=== PATIENT | male | born 1980 | race American Indian/Alaskan Native ===

== ENCOUNTER 2017-10-06 10:40 | Emergency (ER) | payer OTHER, MEDICAID ==
--- NOTE | 2017-10-06 12:16 | RAD ---
PROCEDURE: Right Wrist Radiographs. HISTORY: injury COMPARISON: None. FINDINGS: BONES: No definite fracture identified. 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 . JOINTS: Normal. No dislocation. SOFT TISSUES: There is bulging of the pronator fat pad suggesting possible occult fracture. Further radiographic evaluation is suggested. OTHER FINDINGS: None. IMPRESSION: Possible occult fracture. Pronator fat pad sign noted. No definite fracture identified. Lunotriquetral incidentally noted. .
--- NOTE | 2017-10-06 12:17 | RAD ---
PROCEDURE: Right Hand Radiographs. HISTORY: injury COMPARISON: None. FINDINGS: BONES: No fracture. Incidentally noted is a lunotriquetral coalition, normal developmental variant. JOINTS: Normal. No osteoarthritic changes. SOFT TISSUES: Normal. OTHER FINDINGS: None. IMPRESSION: No acute fracture
--- NOTE | 2017-10-06 12:37 | C.PDOC ---
History Of Present Illness 37 y/o male [id number] presents to the ED for evaluation of right hand and wrist pain since yesterday. Patient reports while at work yesterday he dropped a heavy object on the right hand. Now c/o pain and swelling to the right hand. No other injuries. Denies any numbness or paresthesias. Time Seen by Provider: 10/06/17 11:21 Chief Complaint (Nursing): Upper Extremity Problem/Injury History Per: Patient History/Exam Limitations: no limitations Onset/Duration Of Symptoms: Days Current Symptoms Are (Timing): Still Present Past Medical History Reviewed: Historical Data, Nursing Documentation, Vital Signs Vital Signs: Last Vital Signs Temp 98 F 10/06/17 10:51 Pulse 75 10/06/17 10:51 Resp 16 10/06/17 10:51 BP 128/76 10/06/17 10:51 Pulse Ox 98 10/06/17 12:37 - Medical History PMH: No Chronic Diseases Other Surgeries: Cardiac surgery s/p trauma Family History: States: No Known Family Hx - Social History Hx Tobacco Use: Yes Hx Alcohol Use: No Hx Substance Use: No - Immunization History Hx Tetanus Toxoid Vaccination: Yes Hx Influenza Vaccination: Yes Hx Pneumococcal Vaccination: No Review Of Systems Except As Marked, All Systems Reviewed And Found Negative. Musculoskeletal: Positive for: Hand Pain (right hand + wrist) Neurological: Negative for: Weakness, Numbness Physical Exam - Physical Exam Appears: Non-toxic, No Acute Distress Skin: Normal Color, Warm, Dry Head: Atraumatic, Normacephalic Eye(s): bilateral: Normal Inspection Neck: Normal ROM Extremity: Normal ROM (of all digits), Tenderness (and swelling to right dorsal wrist and hand; neurovascularly intact), Capillary Refill (< 2 sec), No Deformity Pulses: Left Radial: Normal, Right Radial: Normal Neurological/Psych: Oriented x3, Normal Speech, Normal Motor, Normal Sensation, Other (No focal deficits) ED Course And Treatment O2 Sat by Pulse Oximetry: 98 (RA) Pulse Ox Interpretation: Normal Medical Decision Making Medical Decision Making: Clinical Impression: Hand/wrist pain and swelling Initial Plan: --X-ray right wrist --X-ray right hand --Motrin PO X-ray demonstrates possible occult fracture, no obvious fracture seen. Discussed w/ radiologist, Dr. Sagastume. Recommends orthopedic follow up with repeat imaging in 1 week. Impression: Wrist fracture Findings d/w patient. Advised follow up with ortho this week, referral for Dr. Shah provided. Volar splint applied by neurodiagnostic technician. Patient stable for d/c home. Disposition Counseled Patient/Family Regarding: Studies Performed, Diagnosis, Need For Followup, Rx Given - Disposition Referrals: Shantel Shah MD [Staff Provider] - Disposition: HOME/ ROUTINE Disposition Time: 12:35 Condition: STABLE Additional Instructions: follow up with orthopaedic in 2 days you need a repeat xray in one week ice, elevate, motrin for pain call to make an appointment take medications as prescribed return to ER if symptoms worsens or progress Instructions: Wrist Fracture (DC) Forms: General Discharge Instructions, [facility] (Iranian), Work Excuse - Clinical Impression Clinical Impression: Fracture of bone - Scribe Statement The provider has reviewed the documentation as recorded by the Scribe (Emerald Reddy) Provider Attestation: All medical record entries made by the Scribe were at my direction and personally dictated by me. I have reviewed the chart and agree that the record accurately reflects my personal performance of the history, physical exam, medical decision making, and the department course for this patient. I have also personally directed, reviewed, and agree with the discharge instructions and disposition.
[2017-10-06 13:01] VITALS: BP 135/80; PULSE 60; RESP 18; TEMP 98.1; O2SAT 97
== END 2017-10-06 13:01 | disposition home or self-care (01) ==
LOC: C.ER 10:40
DX: S62.101A Fracture of unspecified carpal bone, right wrist, initial encounter for closed fracture (principal); W22.8XXA Striking against or struck by other objects, initial encounter; Y92.89 Other specified places as the place of occurrence of the external cause; Y99.0 Civilian activity done for income or pay

== ENCOUNTER 2017-10-08 08:18 | Emergency (ER) | payer OTHER, MEDICAID ==
[2017-10-08 08:25] VITALS: BMI 36.1
[2017-10-08 08:30] VITALS: BP 130/74; PULSE 61; RESP 18; TEMP 98.8; O2SAT 95
[2017-10-08] MEDS ORDERED: Oxycodone/Acetaminophen 5/325 mg Tab PO STA (08:58)
--- NOTE | 2017-10-08 09:00 | C.PDOC ---
History Of Present Illness 37-year-old male, presents to the emergency department with complaints of wrist pain. Patient was seen in ED two days ago for evaluation of right hand and wrist pain that he developed after something fell on it. Patient notes he had an XR that showed a questionable fracture, he was discharged with a splint and instructed to take Motrin. States pain has worsened, and he is unable to sleep because of it. He is taking Motrin with minimal relief, prompting visit for re- evaluation. Denies any numbness/weakness, or any other associated symptoms. No other complaints at this time. Time Seen by Provider: 10/08/17 08:34 Chief Complaint (Nursing): Upper Extremity Problem/Injury History Per: Patient History/Exam Limitations: no limitations Onset/Duration Of Symptoms: Days Current Symptoms Are (Timing): Still Present Severity: Moderate Exacerbating Factor(s): Worse At Night Past Medical History Reviewed: Historical Data, Nursing Documentation, Vital Signs Vital Signs: Last Vital Signs Temp 98.8 F 10/08/17 08:25 Pulse 61 10/08/17 08:25 Resp 18 10/08/17 08:25 BP 130/74 10/08/17 08:30 Pulse Ox 95 10/08/17 12:02 Family History: States: No Known Family Hx - Social History Hx Tobacco Use: Yes Hx Alcohol Use: No Hx Substance Use: No - Immunization History Hx Tetanus Toxoid Vaccination: Yes Hx Influenza Vaccination: Yes Hx Pneumococcal Vaccination: No Review Of Systems Musculoskeletal: Positive for: Hand Pain Neurological: Negative for: Weakness, Numbness Physical Exam - Physical Exam Appears: Non-toxic, No Acute Distress Skin: Normal Color, Warm, Dry, No Rash Head: Atraumatic, Normacephalic Eye(s): bilateral: Normal Inspection, PERRL Nose: Normal Oral Mucosa: Moist Lips: Normal Appearing Neck: Normal ROM Respiratory: No Accessory Muscle Use (No acute respiratory distress) Extremity: Other ((+)splint in place.) Pulses: Left Radial: Normal, Right Radial: Normal Neurological/Psych: Oriented x3, Normal Speech ED Course And Treatment O2 Sat by Pulse Oximetry: 95 (RA) Pulse Ox Interpretation: Normal Medical Decision Making Medical Decision Making: Impression Wrist fracture Prior Visits Notes and records from previous visits were reviewed. Patient was seen in ED for wrist injury two days ago, and had an xr that showed a ?fracture. Patient was discharged with volar splint and instructed to take Motrin PRN. Plan: Patient will be given Rx for Percocet, and discharged for outpatient f/u with ortho in 1-2 days without fail. Disposition - Disposition Referrals: Shantel Shah MD [Staff Provider] - [facility] [Outside] [facility] [place] [Outside] [facility] [Outside] Disposition: HOME/ ROUTINE Disposition Time: 08:59 Condition: STABLE Additional Instructions: Follow up with Orthopedist within 1-2 days. Return to ED if feel worse. Prescriptions: oxyCODONE/Acetaminophen [Percocet 5/325 mg Tab] 1 tab PO QID PRN #15 tab PRN Reason: Pain Instructions: Wrist Fracture (DC) Forms: [employer] (Mongolian) - Clinical Impression Clinical Impression: Wrist fracture - Scribe Statement The provider has reviewed the documentation as recorded by the Scribe (Oli Shah) All medical record entries made by the Scribe were at my direction and personally dictated by me. I have reviewed the chart and agree that the record accurately reflects my personal performance of the history, physical exam, medical decision making, and the department course for this patient. I have also personally directed, reviewed, and agree with the discharge instructions and disposition.
[2017-10-08] MEDS ORDERED: Oxycodone/Acetaminophen 5/325 mg Tab ONE (09:03)
== END 2017-10-08 09:18 | disposition home or self-care (01) ==
LOC: C.ER 08:18
DX: S62.101G Fracture of unspecified carpal bone, right wrist, subsequent encounter for fracture with delayed healing (principal); X58.XXXD Exposure to other specified factors, subsequent encounter

== ENCOUNTER 2017-10-13 10:26 | Emergency (ER) | payer OTHER, MEDICAID ==
[2017-10-13 10:27] VITALS: BMI 36.1
[2017-10-13 10:41] VITALS: BP 118/80; PULSE 87; RESP 18; TEMP 98.8; O2SAT 98
--- NOTE | 2017-10-13 11:38 | RAD ---
PROCEDURE: Right Hand Radiographs. HISTORY: pain COMPARISON: None. FINDINGS: BONES: No acute fracture. JOINTS: Unremarkable. SOFT TISSUES: Normal. OTHER FINDINGS: None. IMPRESSION: No demonstrated fracture or dislocation.
--- NOTE | 2017-10-13 11:39 | RAD ---
PROCEDURE: Right Wrist Radiographs. HISTORY: previous ? occult fracture COMPARISON: Right wrist radiographs dated 10/06/2017. FINDINGS: BONES: No acute fracture. Lunotriquetral coalition. JOINTS: Unremarkable. SOFT TISSUES: Normal. OTHER FINDINGS: None. IMPRESSION: No demonstrated fracture or dislocation.
--- NOTE | 2017-10-13 11:46 | C.PDOC ---
History Of Present Illness 37 y/o male presents to ED for repeat xray of hand and note to return to work. Patient was seen previously for hand injury and had xray that showed occult fracture. Patient denies new injury, numbness or any other complaints at this time. Time Seen by Provider: 10/13/17 10:51 Chief Complaint (Nursing): Medical Clearance History Per: Patient History/Exam Limitations: no limitations Onset/Duration Of Symptoms: Days Current Symptoms Are (Timing): Still Present Past Medical History Reviewed: Historical Data, Nursing Documentation, Vital Signs Vital Signs: Last Vital Signs Temp 98.8 F 10/13/17 10:39 Pulse 87 10/13/17 10:39 Resp 18 10/13/17 10:39 BP 118/80 10/13/17 10:39 Pulse Ox 98 10/13/17 11:45 - Medical History PMH: No Chronic Diseases Surgical History: No Surg Hx Family History: States: No Known Family Hx - Social History Hx Tobacco Use: Yes Hx Alcohol Use: No Hx Substance Use: No - Immunization History Hx Tetanus Toxoid Vaccination: Yes Hx Influenza Vaccination: Yes Hx Pneumococcal Vaccination: No Review Of Systems Except As Marked, All Systems Reviewed And Found Negative. Musculoskeletal: Positive for: Hand Pain Physical Exam - Physical Exam Appears: Non-toxic, No Acute Distress Skin: Warm, Dry, No Rash Head: Atraumatic, Normacephalic Eye(s): bilateral: Normal Inspection Oral Mucosa: Moist Cardiovascular: Rhythm Regular Respiratory: Normal Breath Sounds, No Rales, No Rhonchi, No Wheezing Gastrointestinal/Abdominal: Soft, No Tenderness, No Guarding, No Rebound Extremity: Normal ROM, Capillary Refill (<2 seconds), No Deformity Pulses: Left Radial: Normal, Right Radial: Normal Neurological/Psych: Oriented x3, Normal Motor, Normal Sensation ED Course And Treatment O2 Sat by Pulse Oximetry: 98 (RA) Pulse Ox Interpretation: Normal Medical Decision Making Medical Decision Making: Assessment: Contusion Progress: Repeat xray showed no fracture Patient d/c with note to return to work Disposition - Disposition Disposition: HOME/ ROUTINE Disposition Time: 11:44 Condition: STABLE Additional Instructions: follow up with your doctor within two days call to make an appointment no fracture noted return to ER if symptoms worsens or progress Instructions: Contusion (DC) Forms: General Discharge Instructions, [facility] (Malay), Work Excuse - Clinical Impression Clinical Impression: Contusion - Scribe Statement The provider has reviewed the documentation as recorded by the Nathalyibkarey Suarez All medical record entries made by the Nathalyibkarey were at my direction and personally dictated by me. I have reviewed the chart and agree that the record accurately reflects my personal performance of the history, physical exam, medical decision making, and the department course for this patient. I have also personally directed, reviewed, and agree with the discharge instructions and disposition.
== END 2017-10-13 11:54 | disposition home or self-care (01) ==
LOC: C.ER 10:26
DX: T14.8XXA Other injury of unspecified body region, initial encounter (principal); X58.XXXA Exposure to other specified factors, initial encounter; Z72.0 Tobacco use

== ENCOUNTER 2017-11-04 21:52 | Emergency (ER) | payer MEDICAID ==
[2017-11-04 21:53] VITALS: BMI 36.1
[2017-11-04 22:04] VITALS: BP 126/73; PULSE 92; TEMP 98.9; O2SAT 99
[2017-11-04] MEDS ORDERED: Albuterol 0.083% Inhal Sol (2.5 mg/3 mL) UD IH STA (22:31)
[2017-11-04] MEDS ORDERED: Promethazine/Cod 6.25mg-10mg/5ml Syr UD PO STA (22:32)
--- NOTE | 2017-11-04 22:34 | C.PDOC ---
History Of Present Illness 37 yo male come in for evaluation of cold sx for past 32 days associated with malaise, bodyaches, sore throat, dry cough. Pt sts, " feel dizzy sometimes as well". Otherwise, pt denies high fever, headache, vertigo, earache, drooling, dysphagia, dyspnea, CP, SOB, wheezing, abd. pain, V/D, back pain, UTI sx, denies recent travel or known sick contact. AT the time of evaluation, occasional dry cough noted, ambulate to ED for evaluation, not in nay apparent distress. Time Seen by Provider: 11/04/17 22:07 Chief Complaint (Nursing): Flu-like Symptoms History Per: Patient Past Medical History Reviewed: Historical Data, Nursing Documentation, Vital Signs Vital Signs: Last Vital Signs Temp 98.9 F 11/04/17 22:02 Pulse 92 H 11/04/17 22:02 Resp 20 11/04/17 23:34 BP 126/73 11/04/17 22:02 Pulse Ox 99 11/04/17 23:28 - Medical History PMH: Bipolar Disorder Family History: States: No Known Family Hx - Social History Hx Tobacco Use: Yes Hx Alcohol Use: No Hx Substance Use: No - Immunization History Hx Tetanus Toxoid Vaccination: Yes Hx Influenza Vaccination: Yes Hx Pneumococcal Vaccination: No Review Of Systems Except As Marked, All Systems Reviewed And Found Negative. Constitutional: Positive for: Malaise. Negative for: Fever ENT: Positive for: Nose Discharge, Nose Congestion, Throat Pain. Negative for: Ear Pain, Ear Discharge, Throat Swelling Cardiovascular: Negative for: Chest Pain, Palpitations, Orthopnea Respiratory: Positive for: Cough. Negative for: Shortness of Breath, Wheezing Gastrointestinal: Negative for: Nausea, Vomiting, Abdominal Pain, Diarrhea Genitourinary: Negative for: Dysuria Musculoskeletal: Negative for: Neck Pain Skin: Negative for: Rash Neurological: Negative for: Altered Mental Status, Headache Physical Exam - Physical Exam Appears: Well, Non-toxic, No Acute Distress Skin: Normal Color, Warm, Dry, No Rash Head: Normacephalic Eye(s): bilateral: PERRL Ear(s): Bilateral: Normal Nose: No Flaring, Discharge (B/L congestion with scant clear rhinorrhea) Oral Mucosa: Moist, No Drooling Tongue: Normal Appearing Lips: Normal Appearing Throat: Erythema (mod B/L), No Exudate, No Drooling Neck: Trachea Midline, Supple Cardiovascular: Rhythm Regular, No Murmur, No JVD Respiratory: No Decreased Breath Sounds, No Accessory Muscle Use, Wheezing ( scattered Right base expiratiry wheezing, BS equal B/L) Gastrointestinal/Abdominal: Soft, No Tenderness Back: No CVA Tenderness Extremity: Normal ROM, No Deformity, No Swelling Neurological/Psych: Oriented x3, Normal Speech ED Course And Treatment O2 Sat by Pulse Oximetry: 99 Pulse Ox Interpretation: Normal Progress Note: On re-evaluation, pt is afebrile, hemodynamicaly stable. Non- toxic. Tolerate Po well in ED. PulsEOx 99 % RA. ENT: no acute findings. Neck : Supple, (-) meningeal sign. Lungs: CTA B/L, BS equal B/L. Abd: benign, (-) guarding, (-) rebound. Neurologicaly intact. Pt has clinical findings c/w bronchitis, asthma exacerbation. Pt advised. ref. to F/u with PMD in 2-3 days f0r re-eavl. return to ED if any worsening or new changes. Disposition Counseled Patient/Family Regarding: Diagnosis, Need For Followup, Rx Given - Disposition Referrals: Ebonie Echavarria MD [Primary Care Provider] - Disposition: HOME/ ROUTINE Disposition Time: 22:34 Condition: STABLE Additional Instructions: Encourage fluids Take medication as prescribed Follow up with PMD in 2-3 days for re-evaluation. return to ED if any worsening or new changes. Prescriptions: Albuterol HFA [Ventolin HFA 90 mcg/actuation (8 g)] 1 puff IH Q6 #1 inhaler Azithromycin [Zithromax] 250 mg PO DAILY #4 tab Benzonatate [Tessalon Perle] 100 mg PO TID #14 capsule Prednisone [Deltasone] 20 mg PO DAILY #3 tablet Instructions: Acute Bronchitis, Asthma in Adults Forms: [facility] (Kinyarwanda) - Clinical Impression Clinical Impression: Bronchitis, Asthma
[2017-11-04] MEDS ORDERED: Albuterol 0.083% Inhal Sol (2.5 mg/3 mL) UD ONE (22:38)
[2017-11-04] MEDS ORDERED: Promethazine/Cod 6.25mg-10mg/5ml Syr UD ONE (22:41)
[2017-11-04 23:35] VITALS: RESP 20
== END 2017-11-04 23:34 | disposition home or self-care (01) ==
LOC: C.ER 21:52 → SUPCPDRO 21:52 → C.ER 23:34
DX: J40 Bronchitis, not specified as acute or chronic (principal); J45.909 Unspecified asthma, uncomplicated; Z72.0 Tobacco use

== ENCOUNTER 2018-01-17 13:35 | Emergency (ER) | payer MEDICAID ==
[2018-01-17 13:35] VITALS: BMI 36.1
[2018-01-17 13:41] VITALS: BP 124/86; PULSE 75; RESP 15; TEMP 98.7; O2SAT 98
--- NOTE | 2018-01-17 18:09 | C.PDOC ---
History Of Present Illness LWOBSPatient left ED without being seen by me. No patient contact was made by me.Per administration, I was told to sign the chart, solely for the purpose of having patient off of my list, not because I saw the patient. I was also told by administration to write a statement stating that I was not involved in this patient's care. DISPO TIME PER RN NOTES Time Seen by Provider: 01/17/18 14:30 Chief Complaint (Nursing): Back Pain Past Medical History Reviewed: Historical Data, Nursing Documentation, Vital Signs Vital Signs: Last Vital Signs Temp 98.7 F 01/17/18 13:39 Pulse 75 01/17/18 13:39 Resp 15 01/17/18 13:39 BP 124/86 01/17/18 13:39 Pulse Ox 98 01/17/18 18:10 - Medical History PMH: Asthma, Bipolar Disorder Family History: States: Unknown Family Hx - Social History Hx Tobacco Use: Yes Hx Alcohol Use: No Hx Substance Use: No - Immunization History Hx Tetanus Toxoid Vaccination: Yes Hx Influenza Vaccination: Yes Hx Pneumococcal Vaccination: No Review Of Systems Review Of Systems: ROS cannot be obtained secondary to pt's inabilty to answer questions. ED Course And Treatment O2 Sat by Pulse Oximetry: 98 Medical Decision Making Medical Decision Making: Patient left ED without being seen by me. No patient contact was made by me.Per administration, I was told to sign the chart, solely for the purpose of having patient off of my list, not because I saw the patient. I was also told by administration to write a statement stating that I was not involved in this patient's care. DISPO TIME PER RN NOTES Disposition - Disposition Disposition: ELOPEMENT - ER ONLY Disposition Time: 14:35 Condition: UNKNOWN Forms: [employer] (Persian) - Clinical Impression Clinical Impression: Patient left without being seen
== END 2018-01-17 14:35 | disposition left against medical advice (07) ==
LOC: C.ER 13:35
DX: Z02.89 Encounter for other administrative examinations (principal); M54.2 Cervicalgia

== ENCOUNTER 2018-06-26 21:19 | Emergency (ER) | payer SELFPAY ==
[2018-06-26 21:20] VITALS: BMI 36.1
[2018-06-26 21:33] VITALS: TEMP 98.3; O2SAT 98
[2018-06-26] MEDS ORDERED: Sodium Chloride 0.9% 1,000 ML IV ONE (21:55)
[2018-06-26 22:25] LABS: BASO % 0.8 % (0.0-2.0); EOS # 0.2 K/uL (0.0-0.7); EOS % 2.9 % (0.0-4.0); HEMOGLOBIN 15.2 g/dL (12.0-18.0); LYMPH # 2.1 K/uL (1.0-4.3); LYMPH % 36.7 % (20.0-40.0); MEAN CELL VOLUME 89.8 fL (80.0-94.0); MEAN CORPUSCULAR HEMOGLOBIN 29.4 pg (27.0-31.0); MEAN CORPUSCULAR HGB CONC 32.8 g/dL (33.0-37.0); MEAN PLATELET VOLUME 7.5 fL (7.2-11.7); MONO # 0.5 K/uL (0.0-0.8); MONO % 8.2 % (0.0-10.0); NEUT % 51.4 % (50.0-75.0); NRBC % 0.1 % (0.0-2.0); RBC 5.17 Mil/uL (4.40-5.90); RED CELL DISTRIBUTION WIDTH 14.1 % (11.5-14.5); WHITE BLOOD COUNT 5.8 K/uL (4.8-10.8)
[2018-06-26 22:36] LABS: ALB/GLOB RATIO 1.3 (1.0-2.1); ALBUMIN 4.3 g/dL (3.5-5.0); ALT/SGPT 37 U/L (21-72); AST/SGOT 34 U/L (17-59); BLOOD UREA NITROGEN 18 mg/dL (9-20); CALCIUM 9.1 mg/dl (8.6-10.4); GFR NON-AFRICAN AMERICAN > 60
--- NOTE | 2018-06-26 23:21 | C.PDOC ---
History Of Present Illness 38 year old male presents with right flank pain since yesterday. Patient states the pain was initially small gradually worsening and now radiating down to the RLQ. Denies trauma, injury, fever, vomiting, nausea, diarrhea, dysuria, he maturia, hx of kidney stone or kidney problems. Time Seen by Provider: 06/26/18 21:36 Chief Complaint (Nursing): Back Pain History Per: Patient History/Exam Limitations: no limitations Onset/Duration Of Symptoms: Days Current Symptoms Are (Timing): Still Present Quality Of Discomfort: Unable To Describe Previous Symptoms: None Associated Symptoms: None Exacerbating Factor(s): Nothing Recent travel outside of the [place]: No Past Medical History Reviewed: Historical Data, Nursing Documentation, Vital Signs Vital Signs: Last Vital Signs Temp 98.3 F 06/26/18 21:28 Pulse 87 06/26/18 21:28 Resp 22 06/26/18 21:28 BP 108/71 06/26/18 21:28 Pulse Ox 98 06/26/18 21:28 - Medical History PMH: Asthma, Bipolar Disorder Family History: States: Unknown Family Hx - Social History Hx Tobacco Use: Yes Hx Alcohol Use: No Hx Substance Use: No - Immunization History Hx Tetanus Toxoid Vaccination: Yes Hx Influenza Vaccination: Yes Hx Pneumococcal Vaccination: No Review Of Systems Constitutional: Negative for: Fever, Chills ENT: Negative for: Nose Discharge, Nose Congestion Cardiovascular: Negative for: Chest Pain, Palpitations Respiratory: Negative for: Cough, Shortness of Breath Gastrointestinal: Positive for: Abdominal Pain. Negative for: Nausea, Vomiting, Diarrhea Genitourinary: Negative for: Dysuria, Hematuria Musculoskeletal: Positive for: Other (Right flank pain) Skin: Negative for: Rash Physical Exam - Physical Exam Appears: Non-toxic Skin: Normal Color, Warm, Dry, No Rash Head: Atraumatic, Normacephalic Eye(s): bilateral: Normal Inspection Oral Mucosa: Moist Chest: Symmetrical, No Tenderness Cardiovascular: Rhythm Regular Respiratory: Normal Breath Sounds, No Rales, No Rhonchi, No Wheezing Gastrointestinal/Abdominal: Soft, Tenderness (RLQ), No Guarding, No Rebound Back: Other (Right flank tenderness) Neurological/Psych: Oriented x3, Normal Speech ED Course And Treatment - Laboratory Results Result Diagrams: 06/26/18 22:21 06/26/18 22:21 Lab Results: Total Bilirubin 0.5 mg/dL (0.2-1.3) 06/26/18 22:21 AST 34 U/L (17-59) 06/26/18 22:21 ALT 37 U/L (21-72) 06/26/18 22:21 Alkaline Phosphatase 57 U/L (38-126) 06/26/18 22:21 Total Protein 7.7 g/dL (6.3-8.3) 06/26/18 22:21 Albumin 4.3 g/dL (3.5-5.0) 06/26/18 22:21 Globulin 3.4 gm/dL (2.2-3.9) 06/26/18 22:21 Albumin/Globulin Ratio 1.3 (1.0-2.1) 06/26/18 22:21 O2 Sat by Pulse Oximetry: 98 (Room air) Pulse Ox Interpretation: Normal Medical Decision Making Medical Decision Making: Plan: * Blood work * Urinalysis * IV fluids * Toradol Patient given 1L NS bolus and toradol ivp. Labs and urine done, unremarkable except for UTI on UA. Results discussed with patient. Rx written for abx for UTI. Advised outpatient followup. Return to the ED for any new or worsening symptoms. CT abd/pelvis initially ordered, however on the basis of normal labs aside from UA, and patient improvement on re-eval (was sleeping and then later laying comfortably watching videos on his phone), imaging was cancelled. Disposition - Disposition Disposition: HOME/ ROUTINE Disposition Time: 00:43 Condition: STABLE Additional Instructions: AMRIK PRATHER, thank you for letting us take care of you today. Your provider was Sidra Pereira MD and you were treated for LOWER BACK PAIN. The emergency medical care you received today was directed at your acute symptoms. If you were prescribed any medication, please fill it and take as directed. It may take several days for your symptoms to resolve. Return to the Emergency Department if your symptoms worsen, do not improve, or if you have any other problems. Please contact your doctor or call one of the physicians/clinics you have been referred to that are listed on the Patient Visit Information form that is included in your discharge packet. Bring any paperwork you were given at discharge with you along with any medications you are taking to your follow up visit. Our treatment cannot replace ongoing medical care by a primary care provider outside of the emergency department. Thank you for allowing the [facility] team to be part of your care today. If you had an X-Ray or CT scan: A Radiologist will review the ED reading if any change in treatment is needed we will contact you. If you had a blood, urine, or wound culture: It will take several days for the results, if any change in treatment is needed we will contact you. If you had an STI test: It will take 48 hours for the results. Please call after 1 week if you have not heard back. Prescriptions: Nitrofurantoin Macrocrystals [Macrobid] 100 mg PO BID #14 cap Instructions: Urinary Tract Infection, Adult (DC) Forms: [employer] (Burmese) - Clinical Impression Clinical Impression: Right flank pain, UTI (urinary tract infection) - Scribe Statement The provider has reviewed the documentation as recorded by the Scribe Moreno Robles All medical record entries made by the Scribe were at my direction and personally dictated by me. I have reviewed the chart and agree that the record accurately reflects my personal performance of the history, physical exam, medical decision making, and the department course for this patient. I have also personally directed, reviewed, and agree with the discharge instructions and disposition.
[2018-06-26 23:23] LABS: SQUAMOUS EPITHIAL < 1 /hpf (0-5); URINE BILIRUBIN NEGATIVE (NEGATIVE); URINE BLOOD NEGATIVE (NEGATIVE); URINE CLARITY Clear (Clear); URINE COLOR Yellow (YELLOW); URINE GLUCOSE (UA) NORMAL (Normal); URINE LEUKOCYTE ESTERASE TRACE Leu/uL (Negative); URINE PROTEIN NEGATIVE (NEGATIVE)
[2018-06-27] MEDS ORDERED: Iodixanol 320 mg/ml 150 ml Bottle IV ONE (00:31)
[2018-06-27 02:16] VITALS: BP 128/78; PULSE 88; RESP 20
== END 2018-06-27 00:45 | disposition home or self-care (01) ==
LOC: C.ER 21:19
DX: N39.0 Urinary tract infection, site not specified (principal); R10.31 Right lower quadrant pain
CPT/HCPCS: 80053; 81001; 85025; 96374; 99284; J1885; J7030; Q9967